=== PATIENT | female | born 2000 ===

== ENCOUNTER 2021-02-20 08:59 | Outpatient (CLI) | payer OTHER | END 2021-02-20 22:03 | disposition home or self-care (01) | LOC: MAMMO 08:59 | PROVIDERS: ATTEND Family Medicine | DX: N64.9 Disorder of breast, unspecified (principal); N64.4 Mastodynia ==

== ENCOUNTER 2022-08-10 05:09 | Emergency (ER) | payer OTHER ==
[~2022-08-10] VITALS: Ht 162.6 cm; Wt 76.2 kg
[2022-08-10 05:10] VITALS: BP 120/75; TEMP 98.1
[2022-08-10 06:09] LABS: PLATELET COUNT 292 K/uL (152-353)
[2022-08-10 06:20] LABS: POTASSIUM 3.5 mmol/L (3.6-5.2)
== END 2022-08-10 08:24 | disposition home or self-care (01) ==
LOC: ED 05:09
PROVIDERS: Family Medicine
DX: K52.89 Other specified noninfective gastroenteritis and colitis (principal); E86.0 Dehydration; E87.6 Hypokalemia
CPT/HCPCS: 36415; 80053; 80307; 81002; 81025; 82150; 83690; 85027; 96360; 96374; 99284; J2550